=== PATIENT | male | born 1960 | race African-American/Black ===

== ENCOUNTER 2017-03-22 14:26 | Emergency (ER) | payer BC, OTHER ==
[~2017-03-22] VITALS: Ht 170.2 cm; Wt 85.2 kg
[~2017-03-22 14:26] MED LIST: NO KNOWN MEDICATIONS
[2017-03-22 14:29] VITALS: TEMP 98; Ht 170.2 cm; Wt 85.2 kg
--- OUTSIDE RECORDS SUMMARY | 2017-03-22 14:29 | XMS REPORT | Continuity of Care Document ---
Author Author [facility] Organization [facility] Address Unknown Phone Unavailable Allergies Active Description Code Type Severity Reaction Onset Reported/Identified Relationship to Patient Clinical Status Yes No Known Drug Allergy [id number] ND N/A N/A 07/22/2014 Confirmed or Verified Yes No Known Medication Allergies NKMA N/A N/A 07/28/2014 Medications Problems Date Dx Coded Attending Type Code Diagnosis Diagnosed By 09/20/2009 Ashleigh 401.1 BENIGN HYPERTENSION 06/30/2013 ANDREW STUART, SANAM Sotelo 401.1 BENIGN HYPERTENSION 07/19/2013 SANAM MORALES MD 401.9 HYPERTENSION NOS 07/22/2014 NATHAN HAYNES MD 401.9 HYPERTENSION NOS 07/22/2014 NATHAN HAYNES MD 786.09 RESPIRATORY ABNORM NEC 07/22/2014 NATHAN HAYNES MD 790.29 OTHER ABNORMAL GLUCOSE Procedures Code [place] [address] METABOLIC PANEL TOTAL CA SANAM MORALES MD 09/20/2009 63299 ASSAY THYROID STIM HORMONE SANAM MORALES MD 09/20/2009 08414 COMPLETE CBC W/AUTO DIFF WBC SANAM MORALES MD 09/20/2009 38634 COMPREHEN METABOLIC PANEL SANAM MORALES MD 06/30/2013 00388 ASSAY THYROID STIM HORMONE SANAM MORALES MD 06/30/2013 35839 COMPLETE CBC, AUTOMATED SANAM MORALES MD 06/30/2013 31621 METABOLIC PANEL TOTAL CA SANAM MORALES MD 07/19/2013 27224 LIPID PANEL SANAM MORALES MD 07/19/2013 78547 COMPREHEN METABOLIC PANEL NATHAN HAYNES MD 07/22/2014 43664 ASSAY OF TROPONIN, QUANT NATHAN HAYNES MD 07/22/2014 41211 COMPLETE CBC, AUTOMATED NATHAN HAYNES MD 07/22/2014 47425 ELECTROCARDIOGRAM, TRACING NATHAN HAYNES MD 07/22/2014 55960 EMERGENCY DEPT VISIT [place] STUART, NATHAN Sotelo 07/22/2014 Results Test Result Range CBC - 06/30/13 16:25 Granulocyte # 4.1 x10^3 3.0-7.0 Granulocyte % 68.2 % 50-70 HCT 46.2 % 42.0-52.0 HGB 14.9 G/DL 14.0-18.0 Lymph # 1.5 x10^3 1.0-4.0 Lymph % 26.7 % 20-50 MCH 29.2 PG 27.0-31.0 MCHC 32.3 G/DL 32.0-36.0 MCV 90 FL 80-94 Jay # 0.2 x10^3 0.0-0.8 Jay % 5.1 % 1.0-9.0 MPV 7.9 FL 6.0-10.0 Platelet 275 x10^3 150-400 RBC 5.11 x10^3 4.60-6.20 RDW 12.6 % 10.0-13.0 WBC 5.8 x10^3 5.8-10.8 Comprehensive Metabolic Panel - 06/30/13 16:25 Sodium 146 MMOLL 134-145 Potassium 4.7 MMOLL 3.6-5.0 Chloride 109 MMOLL 98-107 CO2 25 MMOLL 22-30 Glucose 91 MG/DL 75-110 BUN 15 MG/DL 9-20 Creatinine 1.1 MG/DL 0.8-1.7 Calcium 10.3 MG/DL 8.4-10.2 T Bili .9 MG/DL 0.2-1.3 T. Protein 7.4 G/DL 6.3-8.2 A/G Ratio 1.4 RATIO Albumin 4.3 G/DL 3.5-5.0 Alk Phos 63 U/L 38-126 ALT 45 U/L 11-66 AST 54 U/L 14-36 TSH - 06/30/13 16:25 TSH 0.61 UIUML 0.50-6.00 Basic Metabolic Panel - 07/19/13 09:00 Sodium 142 MMOLL 134-145 Potassium 4.2 MMOLL 3.6-5.0 Chloride 105 MMOLL 98-107 CO2 26 MMOLL 22-30 Glucose 113 MG/DL 75-110 BUN 11 MG/DL 9-20 Creatinine .9 MG/DL 0.8-1.7 Calcium 9.6 MG/DL 8.4-10.2 Lipid Profile - 07/19/13 09:00 HDL 49 MG/DL 40-60 LDL Calculated 38 MG/DL 30-100 Triglyceride 92 MG/DL < 200 VLDL 18 Chol/HDL 2.16 RATIO 0.00-5.00 Cholesterol 105 MG/DL 130-170 Comprehensive Metabolic Panel - 07/22/14 08:03 Sodium 139 MMOLL 134-145 Potassium 4.4 MMOLL 3.6-5.0 Chloride 104 MMOLL 98-107 CO2 22 MMOLL 22-30 Glucose 152 MG/DL 75-110 BUN 15 MG/DL 9-20 Creatinine 1.1 MG/DL 0.8-1.7 Calcium 9.0 MG/DL 8.4-10.2 T Bili .3 MG/DL 0.2-1.3 T. Protein 6.4 G/DL 6.3-8.2 A/G Ratio 1.4 RATIO Albumin 3.7 G/DL 3.5-5.0 Alk Phos 73 U/L 38-126 ALT 53 U/L 11-66 AST 84 U/L 14-36 Troponin I - 07/22/14 08:03 Troponin I < 0.06 NG/ML CBC - 07/22/14 08:03 Eos # 0.12 x10^3 0-0.5 Eos % 2.2 % 0-4 HCT 44.3 % 42.0-52.0 HGB 15.3 G/DL 14.0-18.0 Lymph # 1.34 x10^3 1.0-4.0 Lymph % 24.5 % 20-50 MCH 30.3 PG 27.0-31.0 MCHC 34.5 G/DL 32.0-36.0 MCV 87.7 FL 80-94 Jay # 0.64 x10^3 0.0-0.8 Jay % 11.7 % 1.0-9.0 MPV 9.9 FL 6.0-10.0 Platelet 239 x10^3 150-400 RBC 5.05 x10^3 4.60-6.20 RDW 13.3 % 12-15 WBC 5.47 x10^3 5.8-10.8 Baso # 0.03 x10^3 0-0.2 Baso % 0.5 % 0-2 Neut % 61.1 % 50-70 Neut # 3.34 x10^3 3.0-7.0 Encounters ACCT No. Visit Date/Time Discharge Status Pt. Type Provider Facility Loc./Unit Complaint [id number] 07/22/2014 07:30:00 07/22/2014 09:17:00 DIS Emergency [place]AS STUART, [facility] ER [id number] 07/19/2013 09:37:00 07/19/2013 09:37:00 DIS Outpatient ANDREW STUART, [facility] [id number] 07/01/2013 07:33:00 07/01/2013 07:33:00 DIS Outpatient ANDREW STUART, [facility] [id number] 09/20/2009 11:04:00 Document Registration
--- OUTSIDE RECORDS SUMMARY | 2017-03-22 14:29 | XMS REPORT | Referral Summary ---
Author Organization Unknown Address Unknown Phone Unavailable Care Team Providers Care Accounting Officer Name Role Phone Saurabh Preciado Primary Care Physician [phone] Encounter [facility] [id number] Date(s): 11/25/14 - 11/25/14 [facility], [place] Card[facility] [address] [place], [place] [address] Discharge Diagnosis: Benign essential HTN Discharge Diagnosis: Chronic systolic CHF (congestive heart failure) Discharge Diagnosis: Cardiomyopathy Discharge Disposition: Home or Self Care Attending Physician: Ricky Howell MD Admitting Physician: Ricky Howell MD Referring Physician: Silvano Preciado MD Vital Signs Most recent to 1 oldest [Reference Range]: Peripheral Pulse 64 bpm Rate [60-100 bpm] (11/25/14 4:17 PM) Blood Pressure 178/108 mmHg [90-140/60-90 mmHg] *HI* (11/25/14 4:17 PM) Problem List Condition Effective Dates Status Health Status Informant Anxiety(Confirmed) Resolved Arthritis(Confirmed) Resolved Chest Active pain(Confirmed) BP (high blood Active pressure)(Confirmed) Elevated blood Active sugar(Confirmed) Dental Active caries(Confirmed) Allergies, Adverse Reactions, Alerts No Known Medication Allergies Medications aspirin 81 mg, Oral, Daily, 0 Refill(s) Start Date: 07/27/14 Status: Ordered carvedilol 12.5 mg oral tablet 1 tabs, Oral, BID, # 60 tabs, 5 Refill(s), Pharmacy: [facility], 1 tabs Oral BID Start Date: 11/25/14 Status: Ordered Lasix 20 mg oral tablet 1 tabs, Oral, Daily, # 90 tabs, 0 Refill(s), Pharmacy: [facility], 1 tabs Oral Daily Start Date: 07/31/14 Status: Ordered lisinopril 40 mg oral tablet 1 tabs, Oral, Daily, # 90 tabs, 5 Refill(s), Pharmacy: [facility] Start Date: 07/31/14 Status: Ordered Results No data available for this section Immunizations No data available for this section Procedures No data available for this section Social History Social History Type Response Smoking Status Never smoker Assessment and Plan Extracted from: Title: Office Visit Note Author: Ricky Howell MD Date: 11/25/14 Assessment/Plan Benign essential HTN Uncontrolled. Will continue lisinopril. Increase Coreg to 12.5 mg bid. Cardiomyopathy LVEF 49% per echo. LVEF 36% per nuclear. No ischemia. Likely secondary to HTN. Will continue Lisinopril. BP is not controlled. Will increase Coreg. F/u in 4 weeks. Chronic systolic CHF (congestive heart failure) Euvolemic. See cardiomyopathy. Referrals to Other Providers Referred by: Ricky Howell MD
--- NOTE | 2017-03-22 14:43 | ERPDOC ---
Departure Disposition Decision Date: March 22, 2017 Disposition Decision Time: 15:27 Disposition: 01 DISCHARGED HOME, SELF-CARE Impression Impression Impression: Primary Impression: Hypertension Hypertension type: essential hypertension Qualified Codes: I10 - Essential ( primary) hypertension Severity: Moderate Condition: Stable Seen By: Mid-level only Patient Instructions: Hypertension (ED) Problems/Meds/Labs Reviewed?: Yes Medications reviewed and manag: Yes Additional Instructions: Take the Lisinopril as prescribed. I do want you to follow up with your primary care provider in the next week for refill of your Lisinopril. If any other issues/concerns then return to ER. Follow up care ordered?: Yes Mental Status: Alert Scripts Lisinopril (Lisinopril) 40 Mg Tablet 40 MG PO DAILY for HYPERTENSION, #7 TAB 0 Refills Prov: DARLEEN LINTON RAPHAEL 03/22/17 HPI - General Medical General Chief Complaint: Hypertension Stated Complaint: HIGH BP Time Seen by Provider: 14:35 Source: patient Exam Limitations: no limitations HPI - General Medical Initial Comments He tried to refill his blood pressure medication today at [facility]. He was advised that his PCP would not authorize the refill as he has not been evaluated recently. He did go to immediate care and they recommended that he come to Er for evaluation as they cannot refill those medications there. He presents to Er for evaluation of his blood pressure and a Rx. He state that he ran out of his blood pressure medication about 3 months ago. He has not been having any headache, blurred vision, chest pain, or SOA. Has had some jaw pain and shoulder pain however for the last 24 hours. Occurred At: home Onset: Gradual Duration: other (chronic) Severity: mild Associated Symptoms: DENIES: chest pain, cough, diaphoresis, headaches, loss of appetite, malaise, nausea/vomiting, rash, seizure, shortness of breath, syncope, weakness Hx of Similar Symptoms: No Allergies: Coded Allergies: No Known Drug Allergies (Unverified Adverse Reaction, Unknown, 03/22/17) Past History Past Medical History Metabolic: hypertension ENMT: dental problems Surgical History Denies Surgeries Family History Family History: Negative Vaccines Hx Tetanus Diptheria: Yes (COUPLE WEEKS AGO) Social History Smoking Status: Never smoker Substance Use Type: does not use Alcohol Intake: none Review of Systems Constitutional Constitutional: DENIES: chills, dizziness, fatigue, fever, weakness Cardiovascular Cardiac: DENIES: chest pain, orthopnea Rhythm/Rate: DENIES: irregular beat, palpitations Pulmonary Respiratory: DENIES: cough, dyspnea, sputum GI Upper Abdomen: DENIES: nausea, pain, vomiting Lower Abdomen: DENIES: constipation, diarrhea, pain Integumentary Skin: DENIES: rash Neurological General: DENIES: headache, numbness, tingling, weakness Physical Exam General General Nourishment: well nourished, well developed, appears stated age, no acute distress, adult General Body Habitus: well groomed Vitals and Pain First Documented Vital Signs Date Time Temp Pulse Resp B/P Pulse Ox O2 Delivery O2 Flow Rate FiO2 03/22/17 14:29 98.0 72 16 170/109 97 Room Air Weight: Kilograms: Height (feet): Height (inches): Triage Pain Scale: RN VS reviewed by Provider: Yes Normal Exams: Eyes: Pupils are PERRLA w/ EOMI, No scleral icterus, irritation, or foreign bodies noted Neck: Full range of motion, without adenopathy, JVD, bruits or thyromegaly Chest/Resp: Clear all khan, with good airflow, and symmetry bilaterally CV: Regular rate and rhythm, without murmur or gallop, Pulses 2+ all extremities, capillary refill, <2 seconds all ext., no pedal edema noted Abdomen: Bowel sounds positive, soft, non-tender, non-distended, no hepatosplenomegaly, masses or bruits noted Lymphatic: No lymphadenopathy, or lymphedema noted Integumentary: No rashes, hives, or bruising noted Neurologic: Patient is alert, and oriented, cranial nerves, motor/sensory/ cerebellar, exams w/o gross deficits, to observation Psychiatric: Patient exhibits, appropriate attention, emotion and affect Differential Diagnoses Considering: Acute AK, Other (HTN urgency, renal infarct) Progress Results/Orders Orders Procedure Category Date Status Time EKG EKG 03/22/17 Logged Troponin I W LAB 03/22/17 Complete Hemolysis Index Cbc W/Auto LAB 03/22/17 Complete Diff-Reflex Manual Bmp - Basic Metabolic LAB 03/22/17 Complete Panel Iv Lock (Ed Only) EDM 03/22/17 Transmitted 14:39 Labetalol (Trandate) PHA 03/22/17 Complete 14:45 Lab Results Laboratory Tests Test 03/22/17 14:58 White Blood Count 8.1T/MM3 Red Blood Count 5.18M/MM3 Hemoglobin 15.2GM/DL Hematocrit 45.7% Mean Corpuscular Volume 88.2UM3 Mean Corpuscular Hemoglobin 29.3UUG Mean Corpuscular Hemoglobin Concent 33.3GM/DL RDW Standard Deviation 44.7FL Platelet Count 256T/MM3 Mean Platelet Volume 10.0UM3 Immature Granulocyte % (Auto) 0.2% Neutrophils (%) (Auto) 63.0% Lymphocytes (%) (Auto) 25.1% Monocytes (%) (Auto) 9.4% Eosinophils (%) (Auto) 1.9% Basophils (%) (Auto) 0.4% Absolute Immature Granulocyte (auto 0.02T/MM3 Absolute Neutrophils (auto) 5.1T/MM3 Absolute Lymphocytes (auto) 2.0T/MM3 Absolute Monocytes (auto) 0.8T/MM3 Absolute Eosinophils (auto) 0.2T/MM3 Absolute Basophils (auto) 0.0T/MM3 Turbidity < 20 Sodium Level 145MEQ/L Potassium Level 4.2MEQ/L Chloride Level 108MEQ/L Carbon Dioxide Level 23MEQ/L Anion Gap 14MEQ/L Blood Urea Nitrogen 18.0MG/DL Creatinine 1.1MG/DL Glomerular Filtration Rate Calc 69 BUN/Creatinine Ratio 16RATIO Glucose Level 114MG/DL Calculated Osmolality 282MOSM/KG Calcium Level 9.1MG/DL Icterus Index < 2 Troponin I 0.014ng/ml Chemistry Specimen Hemolysis < 15 Medications Current ED Medications Labetalol HCl (Trandate) 10 mg O ONCE IV Last administered on 03/22/17 15:01 ; Start 03/22/17 at 14:45; Stop 03/22/17 at 14:46; Status DC Progress Progress CBC, BMP, and troponin today are normal. B/P is down to 146/95. I am going to write him a Rx for Lisinopril 40mg which is his home dose for #7 tablets. Will have him follow up with his PCP this week for further Rx. DARLEEN LINTON APRN March 22, 2017 14:43
--- OUTSIDE RECORDS SUMMARY | 2017-03-22 14:43 | XMS REPORT | Continuity of Care Document ---
Author Author [facility] Organization [facility] Address Unknown Phone Unavailable Allergies Active Description Code Type Severity Reaction Onset Reported/Identified Relationship to Patient Clinical Status Yes No Known Drug Allergy [id number] ND N/A N/A 07/22/2014 Confirmed or Verified [...] Procedures Code [place] [address] METABOLIC PANEL TOTAL CA SANAM MORALES MD 09/20/2009 98986 ASSAY THYROID STIM HORMONE SANAM MORALES MD 09/20/2009 97480 COMPLETE CBC W/AUTO DIFF WBC SANAM MORALES MD 09/20/2009 24934 COMPREHEN METABOLIC PANEL SANAM MORALES MD 06/30/2013 83087 ASSAY THYROID STIM HORMONE SANAM MORALES MD 06/30/2013 56224 COMPLETE CBC, AUTOMATED SANAM MORALES MD 06/30/2013 79223 METABOLIC PANEL TOTAL CA SANAM MORALES MD 07/19/2013 03487 LIPID PANEL SANAM MORALES MD 07/19/2013 37027 COMPREHEN METABOLIC PANEL NATHAN HAYNES MD 07/22/2014 10361 ASSAY OF TROPONIN, QUANT NATHAN HAYNES MD 07/22/2014 99375 COMPLETE CBC, AUTOMATED NATHAN HAYNES MD 07/22/2014 25998 ELECTROCARDIOGRAM, TRACING NATHAN HAYNES MD 07/22/2014 11576 EMERGENCY DEPT VISIT [place] STUART, NATHAN Sotelo 07/22/2014 Results Test Result Range CBC - 06/30/13 16:25 Granulocyte # 4.1 x10^3 3.0-7.0 Granulocyte % 68.2 % 50-70 HCT 46.2 % 42.0-52.0 HGB 14.9 G/DL 14.0-18.0 Lymph # 1.5 x10^3 1.0-4.0 Lymph % 26.7 % 20-50 MCH 29.2 PG 27.0-31.0 MCHC 32.3 G/DL 32.0-36.0 MCV 90 FL 80-94 [place] # 0.2 x10^3 0.0-0.8 [place] % 5.1 % 1.0-9.0 MPV 7.9 FL [...] 34.5 G/DL 32.0-36.0 MCV 87.7 FL 80-94 [place] # 0.64 x10^3 0.0-0.8 [place] % 11.7 % 1.0-9.0 MPV 9.9 FL 6.0-10.0 Platelet 239 x10^3 150-400 RBC 5.05 x10^3 4.60-6.20 RDW 13.3 % 12-15 WBC 5.47 x10^3 5.8-10.8 Baso # 0.03 x10^3 0-0.2 Baso % 0.5 % 0-2 Neut % 61.1 % 50-70 Neut # 3.34 x10^3 3.0-7.0 Encounters ACCT No. Visit Date/Time Discharge Status Pt. Type Provider Facility Loc./Unit Complaint [id number] 07/22/2014 07:30:00 07/22/2014 09:17:00 DIS Emergency [place] STUART, [facility] ER [id number] 07/19/2013 09:37:00 07/19/2013 09:37:00 DIS Outpatient ANDREW STUART, [facility] [id number] 07/01/2013 07:33:00 07/01/2013 07:33:00 DIS Outpatient ANDREW STUART, [facility] [id number] 09/20/2009 11:04:00 Document Registration
[2017-03-22] MEDS ORDERED: ASPI-557 PO (14:44)
[2017-03-22] MEDS ORDERED: LABETALOL 100mg/20ml INJECTION IV ONE (14:45)
[2017-03-22] MEDS ORDERED: LISI40TA4 PO ×2 (14:46→15:28)
[2017-03-22 15:03] LABS: BASOPHILS % (AUTO) 0.4 % (0-2); EOSINOPHILS # (AUTO) 0.2 T/MM3 (0-0.5); EOSINOPHILS % (AUTO) 1.9 % (0-4); HCT - HEMATOCRIT 45.7 % (41-53); HGB - HEMOGLOBIN 15.2 GM/DL (13.5-17.5); IMMATURE GRANULOCYTE # (AUTO) 0.02 T/MM3 (0.00-0.03); IMMATURE GRANULOCYTE % (AUTO) 0.2 % (0.0-0.5); LYMPHOCYTES % (AUTO) 25.1 % (23-45); MEAN CORPUSCULAR HGB 29.3 UUG (26-34); MEAN CORPUSCULAR HGB CONC(MCHC 33.3 GM/DL (31-37); MEAN CORPUSCULAR VOLUME 88.2 UM3 (80-100); MONOCYTES # (AUTO) 0.8 T/MM3 (0-0.8); MONOCYTES % (AUTO) 9.4 % (0-9.0); NEUTROPHILS #(AUTO)-ABSOLUTE 5.1 T/MM3 (1.8-7.7); RED BLOOD COUNT 5.18 M/MM3 (4.50-5.90); WBC - WHITE BLOOD COUNT 8.1 T/MM3 (4.5-11.0)
[2017-03-22 15:13] LABS: ANION GAP 14 MEQ/L (5-15); BUN/CREATININE RATIO 16 RATIO (6-26); CALCIUM 9.1 MG/DL (8.4-10.2); CHLORIDE 108 MEQ/L (98-107); CO2 - CARBON DIOXIDE 23 MEQ/L (22-30); CREATININE 1.1 MG/DL (0.8-1.5); GLOMERULAR FILTRATION RATE 69; GLUCOSE 114 MG/DL (75-110); POTASSIUM 4.2 MEQ/L (3.6-5); SODIUM 145 MEQ/L (134-144)
[2017-03-22 15:50] VITALS: BP 156/99; PULSE 74; RESP 16; O2SAT 99
== END 2017-03-22 15:50 | disposition home or self-care (01) ==
LOC: ED 14:26
DX: I10 Essential (primary) hypertension (principal)
CPT/HCPCS: 80048; 84484; 85025; 93005

== ENCOUNTER 2017-03-24 00:47 | Emergency (ER) | payer BC ==
[~2017-03-24] VITALS: Ht 170.2 cm; Wt 87.3 kg
[2017-03-24 00:47] VITALS: Ht 170.2 cm; Wt 87.3 kg
[~2017-03-24 00:47] MED LIST changes: +ASPI-557 PO; +LISI40TA4 PO; -NO KNOWN MEDICATIONS
--- OUTSIDE RECORDS SUMMARY | 2017-03-24 00:50 | XMS REPORT | Continuity of Care Document ---
Author Author [facility] Organization [facility] Address Unknown Phone Unavailable Allergies Active Description Code Type Severity Reaction Onset Reported/Identified Relationship to Patient Clinical Status Yes No Known Drug Allergy [id number] ND N/A N/A 07/22/2014 Confirmed or Verified [...] Procedures Code Description [place] [address] METABOLIC PANEL TOTAL CA SANAM MORALES MD 09/20/2009 71406 ASSAY THYROID STIM HORMONE SANAM MORAELS MD 09/20/2009 13987 COMPLETE CBC W/AUTO DIFF WBC SANAM MORALES MD 09/20/2009 00236 COMPREHEN METABOLIC PANEL SANAM MORALES MD 06/30/2013 75837 ASSAY THYROID STIM HORMONE SANAM MORALES MD 06/30/2013 05967 COMPLETE CBC, AUTOMATED SANAM MORALES MD 06/30/2013 80641 METABOLIC PANEL TOTAL CA SANAM MORALES MD 07/19/2013 17653 LIPID PANEL SANAM MORALES MD 07/19/2013 83270 COMPREHEN METABOLIC PANEL NATHAN HAYNES MD 07/22/2014 08375 ASSAY OF TROPONIN, QUANT NATHAN HAYNES MD 07/22/2014 20310 COMPLETE CBC, AUTOMATED NATHAN HAYNES MD 07/22/2014 72825 ELECTROCARDIOGRAM, TRACING NATHAN HAYNES MD 07/22/2014 49268 EMERGENCY DEPT VISIT [place] STUART, NATHAN Sotelo 07/22/2014 Results Test Result Range CBC - 06/30/13 16:25 Granulocyte # 4.1 x10^3 3.0-7.0 Granulocyte % 68.2 % 50-70 HCT 46.2 % 42.0-52.0 HGB 14.9 G/DL 14.0-18.0 Lymph # 1.5 x10^3 1.0-4.0 Lymph % 26.7 % 20-50 MCH 29.2 PG 27.0-31.0 MCHC 32.3 G/DL 32.0-36.0 MCV 90 FL 80-94 [place] # 0.2 x10^3 0.0-0.8 [place] % 5.1 % 1.0-9.0 MPV 7.9 FL [...] 34.5 G/DL 32.0-36.0 MCV 87.7 FL 80-94 [place] # 0.64 x10^3 0.0-0.8 [place] % 11.7 % 1.0-9.0 MPV 9.9 FL 6.0-10.0 Platelet 239 x10^3 150-400 RBC 5.05 x10^3 4.60-6.20 RDW 13.3 % 12-15 WBC 5.47 x10^3 5.8-10.8 Baso # 0.03 x10^3 0-0.2 Baso % 0.5 % 0-2 Neut % 61.1 % 50-70 Neut # 3.34 x10^3 3.0-7.0 Encounters ACCT No. Visit Date/Time Discharge Status Pt. Type Provider Facility Loc./Unit Complaint [id number] 07/22/2014 07:30:00 07/22/2014 09:17:00 DIS Emergency [place] STUART, [facility] ER [id number] 07/19/2013 09:37:00 07/19/2013 09:37:00 DIS Outpatient ANDREW STUART, [facility] [id number] 07/01/2013 07:33:00 07/01/2013 07:33:00 DIS Outpatient ANDREW STUART, [facility] [id number] 09/20/2009 11:04:00 Document Registration
--- OUTSIDE RECORDS SUMMARY | 2017-03-24 00:50 | XMS REPORT | Continuity of Care Document ---
Author Author [facility] Organization [facility] Address Unknown Phone Unavailable Support Name Relationship Address Phone FELI CHILDS MD Caregiver [address] [place] [id number] Unavailable ZEVEBONI GEORGEEN Next Of Kin [address] [place] [address] Insurance Providers Guarantor ToledoJustin coppola Address [address] [place] [address] Payer [facility] Policy Number [id number] Subscriber's Name Justin Toledo Relationship 17 Self Advance Directives Directive Response Recorded Date/Time Advanced Directives Type None 03/22/17 2:29pm Chief Complaint and Reason for Visit Chief Complaint Hypertension Reason for Visit Hypertension Problems Past Problems Medical Problem Onset Date Hypertension Unknown Medications Current Home Medications Medication Dose Units Route Directions Days Qty Instructions Start Date Aspirin (Aspir 81) 81 Mg Tablet. 81 Mg Oral Daily as needed for Prn Orders 03/22/17 Lisinopril 40 Mg Tablet 40 Mg Oral Daily 03/22/17 Lisinopril 40 Mg Tablet 40 Mg Oral Daily for Hypertension 7 Tablet 03/22/17 Past Home Medications Medication Directions Ordered Status Atenolol 25 Mg Tablet, 25 Mg Oral Daily 10/08/09 Discontinued Social History Social History Problem Response Recorded Date/Time Onset Date Status Hx Alcohol Use No 03/22/2017 3:19pm Not Applicable Not Applicable Query Response Start Date Stop Date Smoking Status Never smoker Hospital Discharge Instructions No hospital discharge instructions. Plan of Care Discharge Date 03/22/17 3:50pm Disposition 01 DISCHARGED HOME, SELF-CARE Condition at Discharge Stable Instructions/Education Provided Hypertension (ED) Prescriptions See Medication Section Additional Instructions/Education Take the Lisinopril as prescribed. I do want you to follow up with your primary care provider in the next week for refill of your Lisinopril. If any other issues/concerns then return to ER. Care Plan and Goals Physician Care Plan Problem:Hypertension Goal: Follow up with primary care provider Instructions: Take medications and follow care plan as discussed/written Functional Status No functional status results. Allergies, Adverse Reactions, Alerts Allergen Type Severity Reaction Status Last Updated No Known Drug Allergies Adverse Reaction Unknown Active 03/22/17 Immunizations Query Response on File Recorded Date/Time Hx Tetanus Diptheria Y COUPLE WEEKS AGO 06/26/13 6:59am Influenza Vaccine Hx NO 03/22/17 3:19pm Vital Signs Acute Vital Signs Vital Response Date/Time Temperature (Fahrenheit) 98.0 deg F (96.8 - 99.1) 03/22/2017 2:29pm Temperature (Calculated Celsius) 36.70008 degrees C (36.0 - 37.3) 03/22/2017 2:29pm Pulse Rate (adult) 74 bpm (60 - 100) 03/22/2017 3:50pm Respiratory Rate 16 breaths/min (10 - 20) 03/22/2017 3:50pm O2 Sat by Pulse Oximetry 99 % (90 - 100) 03/22/2017 3:50pm Blood Pressure 156/99 mm Hg 03/22/2017 3:50pm Height (Feet) 5 feet 03/22/2017 2:29pm Height (Inches) 7.00 inches 03/22/2017 2:29pm Weight (Kilograms) 85.200 kg 03/22/2017 2:29pm Body Mass Index (BMI) 29.0 03/22/2017 2:29pm Results Laboratory Results Test Name Result Units Flags Reference Collection Date/Time Result Date/ Time Comments White Blood Count 8.1 T/MM3 4.5-11.0 03/22/2017 2:58pm 03/22/2017 3: 03pm Red Blood Count 5.18 M/MM3 4.50-5.90 03/22/2017 2:58pm 03/22/2017 3: 03pm Hemoglobin 15.2 GM/DL 13.5-17.5 03/22/2017 2:58pm 03/22/2017 3:03pm Hematocrit 45.7 % 41-53 03/22/2017 2:58pm 03/22/2017 3:03pm Mean Corpuscular Volume 88.2 UM3 80-100 03/22/2017 2:58pm 03/22/2017 3: 03pm Mean Corpuscular Hemoglobin 29.3 UUG 26-34 03/22/2017 2:58pm 2016 3:03pm Mean Corpuscular Hemoglobin Concent 33.3 GM/DL 31-37 03/22/2017 2:58pm 03/22/2017 3:03pm RDW Standard Deviation 44.7 FL 36.9-50.2 03/22/2017 2:58pm 03/22/2017 3 :03pm Platelet Count 256 T/MM3 130-400 03/22/2017 2:58pm 03/22/2017 3:03pm Mean Platelet Volume 10.0 UM3 9.4-12.4 03/22/2017 2:58pm 03/22/2017 3: 03pm Neutrophils (%) (Auto) 63.0 % 33-66 03/22/2017 2:58pm 03/22/2017 3: 03pm Lymphocytes (%) (Auto) 25.1 % 23-45 03/22/2017 2:58pm 03/22/2017 3: 03pm Monocytes (%) (Auto) 9.4 % H 0-9.0 03/22/2017 2:58pm 03/22/2017 3:03pm Eosinophils (%) (Auto) 1.9 % 0-4 03/22/2017 2:58pm 03/22/2017 3:03pm Basophils (%) (Auto) 0.4 % 0-2 03/22/2017 2:58pm 03/22/2017 3:03pm Immature Granulocyte % (Auto) 0.2 % 0.0-0.5 03/22/2017 2:58pm 2016 3:03pm Absolute Neutrophils (auto) 5.1 T/MM3 1.8-7.7 03/22/2017 2:58pm 2016 3:03pm Absolute Lymphocytes (auto) 2.0 T/MM3 1-4.8 03/22/2017 2:58pm 2016 3:03pm Absolute Monocytes (auto) 0.8 T/MM3 0-0.8 03/22/2017 2:58pm 03/22/2017 3:03pm Absolute Eosinophils (auto) 0.2 T/MM3 0-0.5 03/22/2017 2:58pm 2016 3:03pm Absolute Basophils (auto) 0.0 T/MM3 0-0.2 03/22/2017 2:58pm 03/22/2017 3:03pm Absolute Immature Granulocyte (auto 0.02 T/MM3 0.00-0.03 03/22/2017 2: 58pm 03/22/2017 3:03pm Icterus Index < 2 0-7 03/22/2017 2:58pm 03/22/2017 3:25pm Chemistry Specimen Hemolysis < 15 0-25 03/22/2017 2:58pm 03/22/2017 3 :25pm 0-25: Specimen Exhibited No Hemolysis. Turbidity < 20 0-20 03/22/2017 2:58pm 03/22/2017 3:25pm Sodium Level 145 MEQ/L H 134-144 03/22/2017 2:58pm 03/22/2017 3:13pm Potassium Level 4.2 MEQ/L 3.6-5 03/22/2017 2:58pm 03/22/2017 3:13pm Chloride Level 108 MEQ/L H 98-107 03/22/2017 2:58pm 03/22/2017 3:13pm Carbon Dioxide Level 23 MEQ/L 22-30 03/22/2017 2:58pm 03/22/2017 3: 13pm Anion Gap 14 MEQ/L 5-15 03/22/2017 2:58pm 03/22/2017 3:13pm Blood Urea Nitrogen 18.0 MG/DL 9-20 03/22/2017 2:58pm 03/22/2017 3: 13pm Creatinine 1.1 MG/DL 0.8-1.5 03/22/2017 2:58pm 03/22/2017 3:13pm BUN/Creatinine Ratio 16 RATIO 6-26 03/22/2017 2:58pm 03/22/2017 3:13pm Glomerular Filtration Rate Calc 69 03/22/2017 2:58pm 03/22/2017 3: 13pm Glucose Level 114 MG/DL H 75-110 03/22/2017 2:58pm 03/22/2017 3:13pm Calculated Osmolality 282 MOSM/KG H 261-280 03/22/2017 2:58pm 2016 3:13pm Calcium Level 9.1 MG/DL 8.4-10.2 03/22/2017 2:58pm 03/22/2017 3:13pm Troponin I 0.014 ng/ml 0-0.12 03/22/2017 2:58pm 03/22/2017 3:25pm Troponin values with a difference of 55% increase from orginal troponin value represent a true biological DELTA value. (%increase Calc=Orginal Troponin value, divided by subsequent Troponin value, multiplied by 100) Procedures No known history of procedures. Encounters Encounter Location Arrival/Admit Date Discharge/Depart Date Attending Provider Departed Emergency Room [facility] 03/22/17 2:26pm 03/22/17 3: 50pm FELI CHILDS MD Recent Diagnosis
[2017-03-24] MEDS ORDERED: DiphenhydrAMINE 25 MG CAPSULE PO ONE (01:15)
[2017-03-24] MEDS ORDERED: GUAIFENESIN LA 600 MG TABLET PO ONE (01:15)
[2017-03-24] MEDS ORDERED: OXYMETAZOLINE 0.05% NASAL SPRAY 15 ML EA NOSTRIL ONE (01:15)
[2017-03-24] MEDS ORDERED: DiphenhydrAMINE 50 MG/ML INJECTION IV ONE (01:15)
--- NOTE | 2017-03-24 01:23 | ERPDOC ---
Departure Disposition Decision Date: March 24, 2017 Disposition Decision Time: 02:08 Disposition: 01 DISCHARGED HOME, SELF-CARE Impression Impression Impression: Primary Impression: Sinusitis, acute maxillary Recurrence: not specified as recurrent Qualified Codes: J01.00 - Acute maxillary sinusitis, unspecified Additional Impression: Hypertension Hypertension type: essential hypertension Qualified Codes: I10 - Essential ( primary) hypertension Severity: Moderate Condition: Improved Seen By: Physician only Referrals: [facility] 1 Week Patient Instructions: Sinusitis (ED) Problems/Meds/Labs Reviewed?: Yes Medications reviewed and manag: Yes Additional Instructions: You have a sinus infection (viral). Take tylenol, benadryl, and mucinex (nyquil ) as needed for your symptoms. Push fluids. Follow up with your doctor in the next week. Follow up care ordered?: Yes Mental Status: Alert, Oriented HPI - Cough/URI General Chief Complaint: Dyspnea/Respdistress Stated Complaint: SOA Time Seen by Provider: 00:48 Source: patient, family Exam Limitations: other (MR) HPI - Cough/URI Initial Comments 56yo man presented to the ER tonight for 'dyspnea'. Pt awoke 1 hour ago with sinus congestion, trouble breathing through his nose, and left sinus/tooth pain. Pt called EMS for transport. Pt was stable en route, required no interventions. SaO2 96-99% on RA. EKG - NSR. BP elevated, but lower than typical for pt. Occurred At: home Onset/Timing: Rapid Duration: 1 hr Pain/Severity Scale: Now & Worst: 4/10 1 - Pain/pressure Prior Episodes/Possible Cause: occasional episodes Modifying Factors: IMPROVES WITH: rest, WORSE WITH: coughing, lying down Associated Symptoms: cough, facial pain, headache, nasal congestion, nasal drainage, DENIES: chest pain/soreness, dizziness, earache, fever/chills, lightheadedness, muscle aches, shortness of breath, sinus infection, sore throat , wheezing Hx of Similar Symptoms: Yes Allergies: Coded Allergies: No Known Drug Allergies (Verified Adverse Reaction, Unknown, 03/24/17) Past History Past Medical History Metabolic: hypertension ENMT: dental problems Cardiac: CAD Surgical History Denies Surgeries Vaccines Hx Tetanus Diptheria: Yes (COUPLE WEEKS AGO) Social History Substance Use Type: does not use Alcohol Intake: none Review of Systems ENMT Sinuses: congestion, rhinorrhea Comments maxillary pain Pulmonary Respiratory: cough All other Systems All Other Systems: Reviewed and Negative Physical Exam General General Nourishment: well nourished, well developed, appears stated age, no acute distress, adult, obese General Body Habitus: disheveled Vitals and Pain First Documented Vital Signs Date Time Temp Pulse Resp B/P Pulse Ox O2 Delivery O2 Flow Rate FiO2 03/24/17 00:47 97.7 73 18 170/126 96 Room Air Weight: Kilograms: 87.300 Height (feet): 5 Height (inches): 7.00 Triage Pain Scale: RN VS reviewed by Provider: Yes Eyes (brief) Eyes Brief: found: EOMI, PERRL, not found: scleral icterus ENMT (brief) ENMT Brief: FOUND: TM clear, TM good light reflex, ear canals clear, mucosa moist, nasal exudate, normal tonsils, NOT FOUND: normal dentition (Missing/ caried teeth) Neck (brief) Neck: FOUND: trachea midline, NOT FOUND: JVD, adenopathy, thyromegaly Respiratory (brief) Respiratory: FOUND: clear all khan, equal bilaterally, symmetrical, NOT FOUND : rales, wheezes Cardiovascular (brief) Cardiac: FOUND: regular rate, regular rhythm, NOT FOUND: click, gallop, murmur , pedal edema, peripheral edema, rub Capillary Refill: <2 sec Pulses: all distal extremities, equal, strong Abdomen (brief) Comments Umbilical hernia Lymphatic (brief) Lymphatic Brief: NOT FOUND: adenopathy, lymphedema Musculoskeletal (brief) Musculoskeletal Brief: FOUND: spasm, NOT FOUND: deformity, loss of motion, tenderness Integumentary (brief) Integumentary Brief: FOUND: pink, warm Neurologic (brief) Neurological Brief: FOUND: CN w/o gross def to obs, DTR 2/4 all extremities, gait w/o gross def to obs, motor-no gross deficits, sensory-no gross deficits, NOT FOUND: Babinski Psychiatric (brief) Psychiatric Brief: FOUND: alert, normal affect, oriented Differential Diagnoses Differential Diagnoses Considering: Acute Bronchitis, Otitis Media, Pharyngitis, Sinusitis, URI, Viral Syndrome Progress Results/Orders Orders Procedure Category Date Status Time Oxymetazoline Nasal PHA 03/24/17 Complete [place] (Afrin Nasal S 01:15 Guaifenesin La PHA 03/24/17 Complete (Mucinex) 01:15 Diphenhydramine PHA 03/24/17 Complete (Benadryl) 01:15 Hemagram - Cbc No Diff LAB 03/24/17 Complete Bmp - Basic Metabolic LAB 03/24/17 Complete Panel Troponin I W LAB 03/24/17 Complete Hemolysis Index Probnp LAB 03/24/17 Complete 01:23 Lab Results Laboratory Tests Test 03/24/17 01:24 White Blood Count 9.4T/MM3 Red Blood Count 5.24M/MM3 Hemoglobin 15.6GM/DL Hematocrit 46.7% Mean Corpuscular Volume 89.1UM3 Mean Corpuscular Hemoglobin 29.8UUG Mean Corpuscular Hemoglobin Concent 33.4GM/DL RDW Standard Deviation 44.9FL Platelet Count 267T/MM3 Mean Platelet Volume 11.6UM3 Turbidity 23 Sodium Level 146MEQ/L Potassium Level 4.4MEQ/L Chloride Level 107MEQ/L Carbon Dioxide Level 24MEQ/L Anion Gap 15MEQ/L Blood Urea Nitrogen 21.0MG/DL Creatinine 1.1MG/DL Glomerular Filtration Rate Calc 69 BUN/Creatinine Ratio 19RATIO Glucose Level 129MG/DL Calculated Osmolality 286MOSM/KG Calcium Level 8.7MG/DL Icterus Index < 2 Troponin I 0.013ng/ml AF-Ggs-S-Type Natriuretic Peptide 2220PG/ML Chemistry Specimen Hemolysis 39 Medications Current ED Medications Oxymetazoline HCl (Afrin Nasal [place]) 2 spray O ONCE EA NOSTRIL Last administered on 03/24/17 01:19; Start 03/24/17 at 01:15; Stop 03/24/17 at 01:16 ; Status DC Diphenhydramine HCl (Benadryl) 50 mg O ONCE PO ; Start 03/24/17 at 01:15; Stop 03/24/17 at 01:16; Status Cancel Guaifenesin (Mucinex) 600 mg O ONCE PO Last administered on 03/24/17 01:19; Start 03/24/17 at 01:15; Stop 03/24/17 at 01:16; Status DC Diphenhydramine HCl (Benadryl) 50 mg O ONCE IV Last administered on 03/24/17 01:15; Start 03/24/17 at 01:15; Stop 03/24/17 at 01:16; Status DC Progress Progress 56yo man with s/s of acute sinusitis. Will treat accordingly and eval for s/s of more serious dx. After initial eval and lab/rx orders placed, pts demands that physician speak with pts daughter, who identifies herself as a nurse. Daughter is upset that pt has been seen twice in 48 hours. Wants to know what pts prior dx was; claims that pt has CP (which pt vehemently denies). She states that he does not have a PCM, and demands that we place him on his prior meds. Meanwhile pt talks about his prior PCM and referrals to other physicians. He claims that his physicians removed him from his meds. Attempted to explain to daughter the limitations of ER evaluation and treatment. Daughter is insistent that his care be managed in the ER, tonight, and is exasperated that we cannot force him to do what he needs to. Due to daughter's insistence on pt c/o CP, will draw troponin and BNP. No evidence of urgent/emergent dx on eval today. Long discussion held with pts daughter about pts need for f/u for further eval and to stabilize his chronic conditions. Daughter voiced understanding and requested list of local PCM. SHANNON COLVIN DO March 24, 2017 01:23
[2017-03-24 01:30] LABS: HCT - HEMATOCRIT 46.7 % (41-53); HGB - HEMOGLOBIN 15.6 GM/DL (13.5-17.5); MEAN CORPUSCULAR HGB 29.8 UUG (26-34); MEAN CORPUSCULAR HGB CONC(MCHC 33.4 GM/DL (31-37); MEAN CORPUSCULAR VOLUME 89.1 UM3 (80-100); MEAN PLATELET VOLUME 11.6 UM3 (9.4-12.4); RED BLOOD COUNT 5.24 M/MM3 (4.50-5.90); WBC - WHITE BLOOD COUNT 9.4 T/MM3 (4.5-11.0)
[2017-03-24 01:39] LABS: ANION GAP 15 MEQ/L (5-15); BUN/CREATININE RATIO 19 RATIO (6-26); CALCIUM 8.7 MG/DL (8.4-10.2); CHLORIDE 107 MEQ/L (98-107); CO2 - CARBON DIOXIDE 24 MEQ/L (22-30); CREATININE 1.1 MG/DL (0.8-1.5); GLOMERULAR FILTRATION RATE 69; GLUCOSE 129 MG/DL (75-110); POTASSIUM 4.4 MEQ/L (3.6-5); SODIUM 146 MEQ/L (134-144)
[2017-03-24 01:50] LABS: PROBNP 2220 PG/ML (0-175)
--- NOTE | 2017-03-24 02:03 | NUR ---
PROVIDER AT BEDSIDE
[2017-03-24 02:32] VITALS: BP 157/112; PULSE 74; RESP 18; TEMP 97.7; O2SAT 96
--- NOTE | 2017-03-24 02:32 | NUR ---
DEPART PT AND SISTER GIVEN DI FOR SINUSITIS AND F/U. BOTH VERBALIZE UNDERSTANDING OF DI. QUESTIONS ASKED/ANSWERED - DENIES FURTHER QUESTIONS/NEEDS AT THIS TIME. PERSONAL BELONGINGS GATHERED. IV SITE REMOVED. PT TRANSFERRED FROM CART TO WHEEL CHAIR INDEPENDENTLY. PT ESCORTED TO ED EXIT WHERE FAMILY MET WITH PRIVATE VEHICLE. NO SIGN OF DISTRESS AT THIS TIME.
== END 2017-03-24 02:32 | disposition home or self-care (01) ==
LOC: ED 00:47
DX: J01.00 Acute maxillary sinusitis, unspecified (principal); I10 Essential (primary) hypertension; R07.9 Chest pain, unspecified
CPT/HCPCS: 80048; 83880; 84484; 85027; 96374; 99284; J1200